=== PATIENT | male | born 1960 | race Caucasian/White ===

== ENCOUNTER 2018-07-27 00:57 | Day surgery (SDC) | payer BC ==
[~2018-07-27] VITALS: Ht 193 cm; Wt 136.5 kg
[~2018-07-27 00:57] MED LIST: ASPI81TA94 PO; ATEN-65 PO; ATOR20TA65 PO; ATOR40TA69 PO; BENZ200C15 PO; CPAP; DILT120C28 PO; DILT120C78 PO; DILT240C76 PO; DILT360C35 PO; DOXY-179 PO; FLU IM; GLUC-198 PO; GUAI120L3 PO; HYDR115S3 PO; LOVA40TA89 PO; MULT-1335 PO; SILD100T59 PO; TEST1.25 TD
[2018-07-27 05:45] VITALS: BP 151/95
[2018-07-27] MEDS ORDERED: NORMOSOL R SOLN(*) 1000 ML BAG 1,000 ML IV PRN (06:30)
[2018-07-27] MEDS ORDERED: LIDOCAINE/SOD BICARB 8.4% SYR ID ONE (06:30)
[2018-07-27] MEDS ORDERED: PROPOFOL EMUL(*) 10MG/ML 20 ML 20 ML ONE ×2 (07:04→07:46)
[2018-07-27 08:00] VITALS: BP 124/83
--- NOTE | 2018-07-27 08:08 | Short(Outpt) Discharge Summary ---
Discharge Summary Reason for Hosp/Final Diag: (1) Colon cancer screening Status: Acute Hospital Course & Plan: Colonoscopy completed without any problems. Departure Discharge to: Home, Self Care Discharge Instructions Home Meds Active Scripts Atorvastatin Calcium (ATORVASTATIN CALCIUM) 40 Mg Tablet, 1 TAB PO QDAY, #90 TAB 4 Refills Prov:SHELLEY US MD 05/10/18 Diltiazem Hcl (DILTIAZEM 24HR ER) 360 Mg Cap.er.24h, 1 CAP PO QDAY, #90 CAP 4 Refills Prov:SHELLEY US MD 05/10/18 Atenolol (ATENOLOL) 25 Mg Tablet, 1 TAB PO BID, #180 TAB 4 Refills Prov:SHELLEY US MD 05/10/18 Sildenafil Citrate (VIAGRA) 100 Mg Tablet, 0.5-1 TAB PO QDAY PRN for sexual activity, #18 TAB 4 Refills Prov:SHELLEY US MD 05/10/18 Reported Medications Aspirin (ASPIRIN) 81 Mg Tab.chew, 1 TAB PO QDAY 10/31/17 Glucosa Abarca 2KCL/Chondroitin Abarca (GLUCOSAMINE & CHONDROITIN CAP) 1 Each Capsule, 1 CAP PO BID 10/27/17 Cpap (CPAP HOME) Inha, HS 03/13/15 Diet: Regular Activity: As Tolerated Special Instructions: Your colonoscopy was completed without any problems and your prep was excellent (Good Job!!). I didn't find any abnormalities and no polyps were found. I recommend that your next colonoscopy be in 10 years. EVERARDO ORTEGA MD Jul 27, 2018 08:08
[2018-07-27 08:15] VITALS: BP 114/99
[2018-07-27 08:30] VITALS: BP 134/96
[2018-07-27 08:34] VITALS: BP 143/92
--- NOTE | 2018-07-27 09:04 | NUR ---
0800- PT. RECEIVED FROM OR VIA STRETCHER WITH THE SIDERAILS UP. ST. SITTING UP AND A+O X3. SBAR REPORT RECEIVED FROM SABRINA LINDSEY AND DR. RAUSCH. 0805- TURNED PT. O2 DOWN TO 1LPM. 0810- PT. GIVEN COFFEE. 0815- RETURNED PT. TO ROOM AIR. 0820- PT. STATES THAT HE IS READY TO GO HOME SO DISCHARGE INSTRUCTIONS GONE OVER BUT I WAITED TO DO ORTHOSTATICS UNTIL 0830. 0830- ORTHOSTATIC B/P PREFORMED AND PT. TOLERATED VERY WELL. 0840- PT. GOT DRESSED AND IV TAKEN OUT WITH CATH INTACT WITH PRESSURE DRESSING APPLIED. 0845- PT WALKED OUT TO VEHICLE ACCOMPANIED BY PT. AND ELZA LINDSEY.
== END 2018-07-27 08:45 | disposition home or self-care (01) ==
LOC: OR 00:57
PROVIDERS: ATTEND Surgery
DX: Z12.11 Encounter for screening for malignant neoplasm of colon (principal); Z86.010 Personal history of colon polyps
CPT/HCPCS: 00812; 45378; J2704

== ENCOUNTER → 2018-11-02 | Outpatient (CLI) | payer BC ==
[~2018-11-02] MED LIST changes: +LISI-362 PO
[2018-11-02 11:42] LABS: PLATELET COUNT, AUTOMATED 198 K/uL (150-450)
[2018-11-02 12:02] LABS: LDL CHOLESTEROL 86 mg/dl
--- NOTE | 2018-11-02 13:50 | RADIOLOGY IMAGING REPORT ---
FACILITY: [facility] - [place], [place] PATIENT NAME: Robi Daly : 1960 MR: [id number] V: [id number] EXAM DATE: ORDERING PHYSICIAN: NAHUM CABALLERO TECHNOLOGIST: Location: [facility] Patient: Robi Daly : 1960 Visit/Account:[id number] Date of Sevice: 11/02/2018 Exam type: FOOT 3 VIEWS RIGHT History: Right heel pain on medial side for months Comparison: None. Findings: There mild degenerative changes involving the right first MTP joint and IP joint. There is a small r ight calcaneal spur. There is no evidence of acute fracture or dislocation involving the right foot. No radiopaque soft tissue foreign body is seen. There appears be mild degenerative spurring along the distal aspect the right fibula IMPRESSION: 1. 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 No evidence of acute fracture dislocation or radiopaque foreign body seen Report Dictated By: Valerie Oleary MD at 11/02/2018 1:44 PM Report E-Signed By: Valerie Oleary MD at 11/02/2018 1:46 PM WSN:[email or web address]
== END ==
LOC: LAB 11:15
PROVIDERS: ATTEND Internal Medicine
DX: R94.5 Abnormal results of liver function studies (principal); I10 Essential (primary) hypertension; E78.2 Mixed hyperlipidemia; G47.33 Obstructive sleep apnea (adult) (pediatric); Z12.5 Encounter for screening for malignant neoplasm of prostate; M79.671 Pain in right foot
CPT/HCPCS: 36415; 81001; 82040; 82247; 82310; 82374; 82435; 82465; 82565; 82947; 83718; 84075; 84132; 84153; 84155; 84295; 84443; 84450; 84460; 84478; 84520; 84550; 85025

== ENCOUNTER → 2018-11-30 | Outpatient (CLI) | payer BC ==
[~2018-11-30] MED LIST changes: +VARI50KI IM
== END ==
LOC: LAB 09:52
PROVIDERS: ATTEND Surgery
DX: B07.9 Viral wart, unspecified (principal); L81.4 Other melanin hyperpigmentation
CPT/HCPCS: 88305